=== PATIENT | female | born 1965 | race Caucasian/White ===

== ENCOUNTER → 2025-08-28 | Outpatient (CLI) | payer MEDICAID, SELFPAY ==
--- NOTE | 2025-08-28 07:45 | XR_ITS ---
Examination: Screening digital mammography, bilateral Computer aided detection 3-D breast Tomosynthesis, bilateral Date and time of exam: August 28, 2025, 0737 hours, compared to mammograms dating to February 25, 2016 Indication: Screening Technique: Nonmagnified MLO, CC views of the breasts to been obtained, reconstructed from 3-D Tomosynthesis images. R2 computer aided detection program utilized for evaluation of suspicious masses and/or abnormal calcifications. 3-D Tomosynthesis images obtained. Findings: Scattered areas of fibroglandular density. Benign calcifications. No interval suspicious masses Impression: BI-RADS category II: Benign Findings. Recommend 1 year follow-up mammogram.
== END | disposition home or self-care (01) ==
LOC: CDIM 07:20
PROVIDERS: Referring Provider Physician Assistant; Visit Provider Physician Assistant
DX: Z12.31 Encounter for screening mammogram for malignant neoplasm of breast (principal); R92.323 Mammographic fibroglandular density, bilateral breasts; R92.1 Mammographic calcification found on diagnostic imaging of breast
CPT/HCPCS: 77063; 77067

== ENCOUNTER 2025-09-10 15:06 | Emergency (ER) | payer MEDICAID, SELFPAY ==
[2025-09-10 15:10] VITALS: BMI 33.3
[2025-09-10 15:11] VITALS: BP 125/77; PULSE 88; RESP 19; TEMP 37.1; O2SAT 98
--- NOTE | 2025-09-10 15:13 | PD.EDWOUND ---
ED Wound/Laceration-RME/HPI General Chief Complaint: Wound/Laceration Stated Complaint: RIGHT HAND LACERATION Time Seen by Provider: 09/10/25 15:13 Arrival date/time: 09/10/25 15:06 RME / HPI RME / HPI narrative: 59 year old female presents to the ED BIBA from home for right hand laceration today. Patient reports her daughter had attempted committing suicide by stabbing herself on neck. Patient states she attempted to remove the knife from her hands and in doing so cut herself on the right hand. Accompanied by pain. Per medics, patient was given 1g of Tylenol IV and 100mcg of Fentanyl IV with improvement. No other injuries or complaints reported. Last tetanus was 12-13 years ago. Related Data Home Medications ?Medication ?Instructions ?Recorded ?Confirmed diphenhydramine HCl 50 mg capsule 50 mg PO HS #0 caps 09/18/14 07/15/23 atorvastatin 20 mg tablet (Lipitor) 20 mg PO HS CHOLESTEROL #0 tabs 03/13/16 07/15/23 albuterol sulfate 90 mcg/actuation 1 puff inhalation Q4H PRN wheezing 07/15/23 07/15/23 aerosol inhaler ibuprofen 200 mg tablet 600 mg PO BID 07/15/23 07/15/23 Previous Rx's ?Medication ?Instructions ?Recorded topiramate 200 mg tablet (Topamax) 200 mg PO QDAY #90 tabs 09/03/20 ibuprofen 600 mg tablet 600 mg PO Q6H PRN pain #30 tabs 09/10/25 Allergies Allergy/AdvReac Type Severity Reaction Status Date / Time No Known Allergies Allergy Verified 09/10/25 15:22 Review of Systems Review of Systems Systems Reviewed: All systems reviewed, normal except as documented Past Medical History Past Medical History NEUROLOGIC: Positive Neurological Disorders (tremors) and Migraine CARDIAC: Positive Cardiac Disorders and Hypercholesterolemia RESPIRATORY: Positive Asthma GASTROINTESTINAL: Negative Gastrointestinal Disorders GENITOURINARY: Negative Genitourinary Disorders or Renal Disease MUSCULOSKELETAL: Positive Musculoskeletal Disorders, Arthritis, Rheumatoid Arthritis and Degenerative Disk Disease ENDOCRINE: Negative Endocrine Disorders, Diabetes Mellitus Type 1 or Diabetes Mellitus Type 2 HEMATOLOGIC: Negative Blood Disorders OTHER HISTORY: Positive Autoimmune Disease (RA) and Chicken Pox Surgical History SURGICAL: Positive Abdominal Surgery (EXPLORATORY SX), Hysterectomy (PARTIAL) and Section (X2) Social History SMOKING STATUS: Never smoker ED Exam Narrative Physical exam: GENERAL APPEARANCE: alert and oriented x 4, well-developed, well-nourished HEENT: Normocephalic, atraumatic; pupils equal, round, reactive to light; EOMI; mucous membranes pink, moist; oropharynx clear NECK: Supple LUNGS: CTABL; no wheezes, no rales, no rhonchi HEART: Regular rate, regular rhythm; normal S1, S2; no murmurs ABDOMEN: non distended; normal BS; soft, no tenderness, no guarding, no rebound; no masses, no organomegaly, no hernia EXTREMITIES: there is a 2.5 cm laceration to the webbing between the first and second finger, deep, neurovascularly intact, no tendon injury; no edema NEUROLOGIC: awake; alert and oriented x4; cranial nerves II-XII grossly intact PSYCHIATRIC: appropriate mood and affect SKIN: warm, dry, normal color; no rashes Course Quality Measures none Orders Category Date Time Status TDap [Obtain Tdap Consent] X1 Care 09/10/25 15:58 Active HYDROcodone*/APAP 5/325 [Portia 5/325] Med 09/10/25 15:58 Discontinued 1 tab PO X1 ONE Ketorolac Inj [Toradol Inj] Med 09/10/25 16:16 Discontinued 30 mg IM X1 ONE LORazepam [Ativan] Med 09/10/25 16:04 Discontinued 0.5 mg PO X1 ONE Lidocaine 1% 20 ml [Xylocaine 1% 20 ML] Med 09/10/25 15:23 Discontinued 10 ml INFL X1 ONE TET,DIP/PERT AC (Adult)-Tdap [Boostrix Adult (Tdap) Med 09/10/25 15:58 Discontinued Vacc] 0.5 ml IMI .ONCE ONE Vital Signs Vital signs: Vital Signs Temperature 98.8 F 09/10/25 15:11 Pulse Rate 88 09/10/25 15:11 Respiratory Rate 19 09/10/25 15:11 Blood Pressure 125/77 09/10/25 15:11 Pulse Oximetry (%) 98 09/10/25 15:11 Oxygen Delivery Method Room Air 09/10/25 15:11 Pulse ox is 98% on room air which is adequate. PROCEDURES: Laceration Laceration 1: Site: hand Side (If applicable): right Description: linear Depth: simple, single layer (deep laceration, no tendon involvement) Local Anesthetic: lidocaine 1% Amount of anesthesia used (mL): 10 Pre-repair: wound explored and irrigated extensively Skin layer closed with: other (ethilon) Suture size (cm): 3-0 Number of sutures: 5 Technique: simple, interrupted Wound / Laceration MDM Narrative MDM Narrative:: Vanessa De La Garza am scribing for and in the presence of Dr. Smith. Patient data External records reviewed:: [facility] previous records and EMS form Clinical information provided by:: patient and EMS Social determinants that could affect healthcare access:: none Patient has the following chronic illnesses:: HLD How is presenting disease/condition affected by chronic disease/condition?: uneffected by Evaluation data The following diagnostics were reviewed and interpreted by me:: other (specify) (No diagnostics ordered ) Lab and/or radiology exams considered but not ordered:: None Interpretation Summary: N/A Medications / Prescriptions Medications or Prescriptions considered but not ordered:: None Medication administrations:: Medication Administration History Discontinued Medications Hydrocodone Bitart/Acetaminophen (Hydrocodone/Apap 5/325 Tablet) 1 tab PO X1 ONE Stop: 09/10/25 15:59 Last Admin: 09/10/25 16:05 Dose: 1 tab Documented By: AVERY Diphtheria/Tetanus/Acell Pertussis (Diphth,Pertuss(Acell),Tet Vac 0.5 Ml Syr- Adult) 0.5 ml IMi .ONCE ONE Stop: 09/10/25 15:59 Last Admin: 09/10/25 16:06 Dose: 0.5 ml Documented By: AVERY Ketorolac Tromethamine (Ketorolac Inj 30 Mg/Ml Vial) 30 mg IM X1 ONE Stop: 09/10/25 16:17 Lidocaine HCl (Lidocaine Hcl 1% 20 Ml Vial) 10 ml INFL X1 ONE Stop: 09/10/25 15:24 Last Admin: 09/10/25 15:28 Dose: 10 ml Documented By: AVERY Comments: ADMINISTERED BY DR. SMITH FOR RIGHT HAND WOUND LAC Lorazepam (Lorazepam 0.5 Mg Tablet) 0.5 mg PO X1 ONE Stop: 09/10/25 16:05 See above Consultations Consultation(s) initiated? (list below): No Diagnosis Wound Differential Diagnosis: laceration Most likely diagnosis given after review of the tests above:: Laceration of hand, right Admission Indicated Admission indicated?: not indicated Admission Request Was there a request for admission?: No Disposition Plan Disposition Plan: Discharge Discharge Attestation Discharge Attestation: The patient and all family members were given an opportunity to ask questions and understood the discharge instructions. Discharge instructions specifically effects, indications for sooner follow up or return to the emergency department, and the expected course of current diagnosis. Patient condition: Stable Discharge Plan Plan Patient Disposition: HOME (Self Care) Prescriptions/Referrals Prescriptions/Med Rec: New ibuprofen 600 mg tablet 600 mg PO Q6H PRN (Reason: pain) Qty: 30 0RF No Action diphenhydramine HCl 50 MG capsule 50 mg PO HS Qty: 0 atorvastatin [Lipitor] 20 MG tablet 20 mg PO HS Qty: 0 topiramate [Topamax] 200 mg tablet 200 mg PO QDAY Qty: 90 0RF ibuprofen 200 mg Tablet 600 mg PO BID albuterol sulfate 90 mcg/actuation HFA aerosol inhaler 1 puff INHALATION Q4H PRN (Reason: wheezing) Patient Comments: INHALE 1 PUFF BY MOUTH EVERY 4 TO 6 HOURS NEEDED FOR ASTHMA Problem List Clinical Impression: Laceration of hand, right Patient/Caregiver Discharge Instructions Education Materials: ED Laceration, Hand: All Closures Print Language: Irish Stand Alone Forms: Celia Award Info., Patient Portal Info Letter
[2025-09-10 15:15] VITALS: PULSE 102; O2SAT 99
[2025-09-10] MEDS: LIDOCAINE HCL 1% 20 ML VIAL 10 ML INFL (15:28)
[2025-09-10] MEDS: HYDROcodone/APAP 5/325 TABLET 1 TAB PO (16:05)
[2025-09-10] MEDS: DIPHTH,PERTUSS(ACELL),TET VAC 0.5 ML SYR- ADULT IMi (16:06)
[2025-09-10] MEDS: KETOROLAC INJ 30 MG/ML VIAL 15 MG IVP (16:29)
== END 2025-09-10 16:43 | disposition home or self-care (01) ==
LOC: SERX 16:34
PROVIDERS: Emergency Provider Emergency Medicine; PCP Physician Assistant
DX: S61.411A Laceration without foreign body of right hand, initial encounter (principal); X78.9XXA Intentional self-harm by unspecified sharp object, initial encounter; Z23 Encounter for immunization
CPT/HCPCS: 12001; 90471; 90715; 96374; 99281; J1885; J3490; A9270